=== PATIENT | male | born 1965 | race Caucasian/White ===

== ENCOUNTER 2017-12-18 08:38 | Observation (INO) ==
[2017-12-18] MEDS ORDERED: Naloxone 0.4 MG/ML INJ IVP PRN (11:13)
--- NOTE | 2017-12-18 11:13 | Internal Med History&Physical ---
Date of Encounter: 12/18/17 Time of Encounter: 11:13 Internal Medicine - H&P: HPI Admitted From: Home Plans for Post Hospital Care: Home History of present illness: Mr. George is a 52 year old male with history of CKd2, kidney stone, COPD but not home oxygen, 2 mild leaking valve with no planned cardiac intervention, diabetes mellitus, hypertension, DVT last year but not on anticoagulation except aspirin got transferred from [facility] with diagnosis of right flank pain, history of present illness, leukocytosis. Patient requested for advanced care and wanted to get transferred to her center for ongoing intermittent right flank pain for several month but 3-4 days ago got worse and have progressively worse. Patient denies any associated nausea, vomiting, fever, chills, urinary or bowel complaint. Patient described his pain more like tearing maximum 10 x 10 and at present 6 x 10, nonradiating, Pain get worse on lying right side therefore he preferred to lie down On left side get better on taking pain medicine such as Motrin. In [facility] ER initial lab with raised creatinine 2.8 baseline 1.8 and Avapro 19 few days ago, raised white count 27, normal lactic acid, CT abdomen with no acute finding except left nonobstructive nephrolithiasis, chest x-ray negative. Report of CT abdomen revealed but no imaging CD was sent to therefore requested. Patient had history of abdominal surgery hernia repair, appendectomy questionable gallbladder surgery. Patient denies fever, chills, nausea, vomiting, chest pain, shortness of breath , headache, dizziness, urinary or bowel complaint. Past Med Surg Social Fam HX - Past Medical History Medical history: asthma, CHF, COPD, DVT, kidney stones - Social History Smoking Status: Former smoker Internal Medicine - H&P: Meds 3 Allergy/AdvReac Type Severity Reaction Status Date / Time bee venom protein (honey bee) Allergy Severe Swelling Verified 12/18/17 11:24 of Lip/Tongue/Throat gabapentin Allergy Intermediate Blurry Verified 12/18/17 11:22 Vision metformin AdvReac Gastrointestinal Verified 12/18/17 11:23 Upset All Systems PM: A 10-system review of systems was performed and is negative for pertinent findings except as documented above in the HPI. - Constitutional Exam: General appearance: No acute distress, A&O X 3, obese Head exam: Atraumatic Eye exam: EOMI, PERRLA ENT exam: Moist oral mucosa Neck nontender, supple Respiratory exam: Clear to auscultation bilaterally Cardiovascular exam: Regular rate and rhythm, no systolic murmur Abdominal exam: Soft, tender right upper abdomen and right flank, right CVA tenderness, nondistended, positive bowel sounds, obese Extremities exam: No calf tenderness, no pedal edema Present: Skin-no rash, warm, dry, intact Neurological exam: Alert, awake, oriented 3, CN II-XII intact, no focal deficits. No facial droop. Normal speech. Normal gait. Internal Med - H&P Results - Labs CBC & Chem 7: 12/18/17 11:24 - Assessment and plan (1) Right flank pain Current Visit: Yes Status: Acute Assessment and plan: Acute on chronic intermittent. Right costovertebral tenderness. Patient does not appear in sepsis and no associated systemic sign and symptom. CT abdomen done in was a ER with no acute finding but I would like to have our radiologist reviewed the CD of the CT scan therefore requested. Symptomatic treatment nothing by mouth, IV fluid, pain medicine. Amylase, lipase also ordered to rule out underlying pancreatic inflammation. Ultrasound right upper abdomen ordered to rule out possible obstructive biliary duct as alkaline phosphatase elevated. (2) CHADWICK (acute kidney injury) Current Visit: Yes Status: Acute Assessment and plan: Acute on chronic. Gentle hydration, avoid nephrotoxic drug. Monitor BMP. Consulted still operator gin for further evaluation. (3) Leukocytosis Current Visit: Yes Status: Acute Assessment and plan: No source of infection identified but elevated white count. No fever or chills urinary complaint or pulmonary complaints, chest x-ray done in both the ER with no acute finding. Patient has right flank pain therefore ultrasound right upper quadrant ordered to rule out inflammatory hepatobiliary system. start Invanz. Lactic acid normal. Qualifiers: Leukocytosis type: unspecified Qualified Code(s): D72.829 - Elevated white blood cell count, unspecified (4) Diabetes mellitus Current Visit: Yes Status: Acute Assessment and plan: Hold metformin. Accu-Chek, low sliding scale insulin started. Qualifiers: Diabetes mellitus type: type 2 Diabetes mellitus halfway insulin use: without halfway use Diabetes mellitus complication status: without complication Qualified Code(s): E11.9 - Type 2 diabetes mellitus without complications (5) Hypertension Current Visit: Yes Status: Acute Assessment and plan: Continue monitor. Continue home medicine. Qualifiers: Hypertension type: essential hypertension Qualified Code(s): I10 - Essential (primary) hypertension (6) DVT prophylaxis Current Visit: Yes Status: Acute Assessment and plan: Patient is ambulating. - Time Spent With Patient Total time spent is greater than 50% in coordination of care (as documented) at patient's floor/unit and/or counseling patient: 25 - 35 minutes
[2017-12-18 11:40] LABS: Basophils # 0.1 K/mcL (0.0-0.2); Basophils % 0.5 %; Eosinophils # 0.2 K/mcL (0.0-0.6); Eosinophils % 0.8 %; Hematocrit 35.7 % (37.5-50.1); Hemoglobin 12.2 g/dL (12.9-16.9); Immature Granulocytes % 0.6 % (0-4); Lymphocytes # 6.4 K/mcL (0.6-4.6); Mean Corpuscular HGB Conc 34.2 g/dL (31.6-35.5); Mean Corpuscular Hemoglobin 29.5 pg (28.0-33.3); Mean Corpuscular Volume 86.4 fL (83.0-100.0); Mean Platelet Volume 10.4 fL (9.4-12.4); Monocytes # 1.7 K/mcL (0.0-1.3); Monocytes % 7.3 %; Neutrophils # 14.4 K/mcL (1.6-8.9); Platelet Count 399 K/mcL (140-400); Red Blood Count 4.13 M/mcL (4.19-5.50); Red Cell Distribution Width 16.4 % (11.5-14.5); Segmented Neutrophils % 62.8 %
[2017-12-18] MEDS ORDERED: D5% in Water 1,000 ML IVC PRN (11:47)
[2017-12-18] MEDS ORDERED: *HR* Dextrose 50 % in Water (Syg) 50 ML SYRINGE IVP PRN (11:47)
[2017-12-18] MEDS ORDERED: Dextrose Gel 15 GM/37.5 ML TUBE PO PRN ×2 (11:47)
[2017-12-18] MEDS ORDERED: *HR* FentaNYL (PF) 100 MCG/2 ML VIAL IVP PRN (11:52)
[2017-12-18 11:58] LABS: Albumin 3.9 g/dL (3.5-5.7); Albumin/Globulin Ratio 1.2 (1.1-2.2); Bilirubin,Total 0.8 mg/dL (0.3-1.0); Calcium 9.6 mg/dL (8.6-10.3); Globulin 3.3 g/dL (2.4-3.5); Potassium 4.2 mEq/L (3.5-5.1); Total Protein 7.2 g/dL (6.4-8.9)
[2017-12-18] MEDS: Insulin LISPRO 300 UNITS/3 ML VIAL SQ SCH ×3 (12:29→21:20)
[2017-12-18] MEDS: Ertapenem 1,000 MG in 0.9 % Sodium Chloride Mini Bag 100 ML IVPB SCH (12:31)
[2017-12-18] MEDS: 0.9 % Sodium Chloride 1,000 ML IVC SCH ×2 (12:31→20:26)
[2017-12-18 12:35] LABS: Estimated Average Glucose 226 mg/dl; Hemoglobin A1C 9.5 %
[2017-12-18] MEDS: *HR* OxyCODONE Immed Rel 5 MG TABLET PO PRN ×2 (12:56→19:45)
[2017-12-18 13:12] LABS: Bilirubin,Urine Negative (Negative); Blood,Urine Negative (Negative); Clarity,Urine Clear (Clear); Color,Urine Yellow (Yellow); Glucose,Urine (UA) Normal (Normal); Ketones,Urine Negative (Negative); Leukocyte Esterase,Urine Negative (Negative); Nitrite,Urine Negative (Negative); Protein,Urine Negative (Neg-Trace); Specific Gravity,Urine 1.015 (1.010-1.025); Urobilinogen,Urine Normal (Normal)
[2017-12-19] MEDS: *HR* OxyCODONE Immed Rel 5 MG TABLET PO PRN ×3 (01:56→23:00)
[2017-12-19] MEDS: 0.9 % Sodium Chloride 1,000 ML IVC SCH ×2 (05:46→20:52)
[2017-12-19] MEDS: Insulin LISPRO 300 UNITS/3 ML VIAL SQ SCH ×4 (08:40→20:42)
[2017-12-19] MEDS ORDERED: cefTRIAXone 1,000 MG in Water for inj. (sterile) 20 ML 10 ML IVP SCH (09:00)
--- NOTE | 2017-12-19 09:20 | Nephrology Consult Note ---
Date of Encounter: 12/19/17 Time of Encounter: 09:18 Assessment and Plan (1) CHADWICK (acute kidney injury) Current Visit: Yes Status: Acute Patient has a clinical picture appears to be acute kidney injury superimposed on chronic kidney disease. However not all information is available. Cranial medical record baseline creatinine is 1.8 and patient had a creatinine of 2.8 yesterday. Today's back down to 2.0 to I suspect he does have underlying stage III chronic kidney disease possibly related to diabetic nephropathy and/or hypertensive nephrosclerosis. A full evaluation will be done while the patient is here in the hospital. He does not have any signs nor symptoms of acute pyelonephritis nor urinary tract infection. He has no constitutional symptoms such as fevers chills or sweats. Urinalysis is completely benign. I suspect his right flank pain is musculoskeletal in nature (2) Chronic kidney disease, stage III (moderate) Current Visit: Yes Status: Acute (3) Benign hypertension with chronic kidney disease, stage III Current Visit: Yes Status: Acute (4) Type 2 diabetes mellitus with diabetic chronic kidney disease Current Visit: Yes Status: Acute Qualifiers: Diabetes mellitus fpc insulin use: with fpc use Chronic kidney disease stage: stage 3 (moderate) Qualified Code(s): E11.22 - Type 2 diabetes mellitus with diabetic chronic kidney disease; N18.3 - Chronic kidney disease, stage 3 (moderate); N18.3 - Chronic kidney disease, stage 3 (moderate); Z79.4 - residential (current) use of insulin; Z79.4 - residential (current) use of insulin; Z79.4 - residential (current) use of insulin; Z79.4 - residential (current) use of insulin (5) Right flank pain Current Visit: Yes Status: Acute History of Present Illness - History of Present Illness This is a 52-year-old male who was admitted to the hospital after 2 emergency room visits to [facility] for right flank pain. He was noted to have an elevated serum creatinine. He has been admitted to the hospital for further evaluation and management. Patient reports a history of chronic kidney disease. He said he is seeing a pile driver at [facility] in the past. He is unaware of any details. [facility]ranial [facility] records baseline creatinine is 1.8. In [facility] yesterday was 2.8. Today's 2.02. He did receive some IV fluids overnight. Patient reports a history of diabetes for 2 years and possibly longer. He has been treated for hypertension for 5 years. He has taken Motrin in the past but he says he has not taken any for the past 6 weeks or so. Denies any hematuria, proteinuria, recurrent urinary tract infections, dysuria, abnormal urinary frequency. He does have nocturia 5 times per night. He said he has been told he has renal stones but he is unaware of having any acute renal stone episodes. Reportedly a CAT scan at [facility] does show a nonobstructing renal calculus. That report is not available for review. Patient says that he has been having right flank pain for at least a week or so. The pain radiates anteriorly. He says nothing makes it worse but then upon further questioning he says that moving certain ways and laying certain ways does make it worse. He said he has not had it before then again upon further questioning he says he has had it several times previously and it tends to come and go. He denies taking any prescription pain medications. He says he usually uses Tylenol. He also has used Motrin as noted above. He denies any previous back issues or back injuries or back surgery. The patient does have elevated white blood cell count of 22.9. He denies any fevers chills sweats or cough. Past Med Surg Social Fam HX - Past Medical History Medical history: asthma, CHF, COPD, DVT, kidney stones Psychiatric history: no psych history - Past Surgical History Surgical History: appendectomy, cholecystectomy, orthopedic, other - Social History Smoking Status: Former smoker Smokeless Tobacco Status: Yes Alcohol use: none Drug use: none Medications and Allergies Albuterol Sulfate [Ventolin Hfa] 1 - 2 puff IH Q6H PRN 12/18/17 [History] Alogliptin Benzoate [Alogliptin] 12.5 mg PO DAILY 12/18/17 [History] Aspirin Enteric Coated [Aspirin EC] 81 mg PO DAILY 12/18/17 [History] Atorvastatin Calcium [Lipitor] 80 mg PO HS 12/18/17 [History] Ezetimibe [Ezetimibe] 10 mg PO DAILY 12/18/17 [History] Furosemide [Lasix] 20 mg PO DAILY PRN 12/18/17 [History] HYDROcodone/Acet 5/325 mg [[place] 5-325 mg] 1 tab PO Q6H PRN 12/18/17 [History] Insulin Degludec [Tresiba Flextouch U-100] 40 - 60 unit SQ HS 12/18/17 [History] Lisinopril [Zestril] 20 mg PO DAILY 12/18/17 [History] Metoprolol Tartrate [Metoprolol Tartrate] 100 mg PO DAILY 12/18/17 [History] Ranitidine HCl [Heartburn Relief] 150 mg PO BID 12/18/17 [History] metOLazone [Zaroxolyn] 5 mg PO DAILY 12/18/17 [History] 3 Allergy/AdvReac Type Severity Reaction Status Date / Time bee venom protein (honey bee) Allergy Severe Swelling Verified 12/18/17 11:24 of Lip/Tongue/Throat gabapentin Allergy Intermediate Blurry Verified 12/18/17 11:22 Vision metformin AdvReac Gastrointestinal Verified 12/18/17 11:23 Upset Review of Systems Constitutional: no excessive sweating, no weight loss Eyes: bilateral: blurred vision (patient denies), diplopia (patient denies) Nose, mouth and throat: no dizziness, no headache(s) Cardiovascular: dyspnea on exertion, no chest pain, no palpitations Respiratory: dyspnea on exertion, no cough, no dyspnea Gastrointestinal: no abdominal pain, no change in bowel habits Genitourinary Male: flank pain Musculoskeletal: as per HPI, back pain Musculoskeletal: bilateral: knee pain Integumentary: no hirsutism, no striae Neurological: as per HPI Psychiatric: no depression, no difficulty concentrating Endocrine: as per HPI Exam - Vital Signs Vital signs: Initial Vital Signs Temp Pulse Resp BP Pulse Ox 97.7 F 58 17 108/70 95 12/18/17 11:16 12/18/17 11:16 12/18/17 11:16 12/18/17 11:16 12/18/17 11:16 Vital Signs - Last 8 Hours Temp Pulse Resp BP Pulse Ox 12/19/17 08:25 98.0 F 62 16 125/76 96 12/19/17 03:04 98.0 F 61 16 97/53 93 Intake and Output 12/18/17 12/19/17 12/19/17 23:59 07:59 15:59 Intake Total 1000 / 1000 Output Total 1100 / 1100 400 / 400 Balance -1100 / -1100 1000 / 1000 -400 / -400 Intake: IV Fluids 1000 / 1000 0.9 % Sodium Chloride 1,000 ML 1000 / 1000 @ 100 mls/hr IVC .Q10H QUINN Rx#: [id number] Output: Urine 1100 / 1100 400 / 400 Other: Weight 132.5 kg Blood Glucose* 184 120 Patient Weight 12/19/17 23:59 Weight 132.5 kg - General Appearance Exam: Patient is alert and oriented. He is in no acute distress. Blood pressure 125/ 76. Lowest recorded blood pressures 93/56. Lungs clear to auscultation. Heart regular rate and rhythm without any murmurs or S4 gallops clicks or rubs. Abdomen is protuberant. Bowel sounds are present. No masses julita megaly tenderness guarding or rigidity. There is no laryngeal be swelling. There is some right paraspinal tenderness. This is exacerbated when the patient moves from a semirecumbent position to a sitting position. Results - Lab Results 12/18/17 11:24 12/18/17 11:24 Most recent lab results Calcium 9.6 mg/dL (8.6-10.3) 12/18/17 11:24 Consult Discharge Plan - Plan Referrals: Porfirio Davis MD [Primary Care Provider] -
[2017-12-19] MEDS ORDERED: *HR* OxyCODONE Immed Rel 5 MG TABLET PO SCH (12:00)
[2017-12-19] MEDS: Ertapenem 1,000 MG in 0.9 % Sodium Chloride Mini Bag 100 ML IVPB SCH (12:06)
--- NOTE | 2017-12-19 12:33 | Internal Med Progress Note ---
Date of Encounter: 12/19/17 Time of Encounter: 12:33 - Assessment and plan (1) Right flank pain Current Visit: Yes Status: Acute Assessment and plan: presented with severe right flank pain. Outside hospital ABD CT showed 1.1 cm non-obstructing, otherwise non-acute, no ductal dilation. Lipase, amylase normal at outside hospital. UA unremarkable. Afebrile, no tachycardia. Do not suspect pyelonephritis Etiology unknown at this time however suspect musculoskeletal as pain is reproducible and worse with palpation. Liver ultrasound showed possible hepatitis which could be contributing factor although less likely. Patient reported pain as a ripping/tearing sensation and he is a former smoker with hypertension; unable to do CTA to assess for dissection due to CHADWICK. Discussed with radiology and will order MRA of abdomen/ pelvis to evaluate vasculature. Hepatitis panel pending (2) CHADWICK (acute kidney injury) Current Visit: Yes Status: Acute Assessment and plan: Cr 2.8; baseline appears to be around 1.8. Renal function appears to be improving with IV fluids. Holding home SARA, Lasix. Avoid nephrotoxic agents as possible. Nephrology following. Monitor repeat renal function. Renal ultrasound pending. (3) Leukocytosis Current Visit: Yes Status: Acute Assessment and plan: WBC 27K at outside hospital, lactic acid 1.2. Afebrile, no tachycardia. BP soft/borderline. No obvious infectious source. UA not indicative of UTI, ABD CT non-acute. CXR, blood cx's pending. Hold on ATB at this time Qualifiers: Leukocytosis type: unspecified Qualified Code(s): D72.829 - Elevated white blood cell count, unspecified (4) Diabetes mellitus Current Visit: Yes Status: Acute Assessment and plan: per hx. leading home oral hypoglycemics. SSI. Monitor blood sugar and titrate PRN Qualifiers: Diabetes mellitus type: type 2 Diabetes mellitus [facility] insulin use: without [facility] use Diabetes mellitus complication status: without complication Qualified Code(s): E11.9 - Type 2 diabetes mellitus without complications (5) Hypertension Current Visit: Yes Status: Acute Assessment and plan: per hx. BP soft/borderline. Holding home SARA with AK I. Continue home BB with hold parameters. Qualifiers: Hypertension type: essential hypertension Qualified Code(s): I10 - Essential (primary) hypertension (6) DVT prophylaxis Current Visit: Yes Status: Acute Assessment and plan: ambulation - Time Spent With Patient Total time spent is greater than 50% in coordination of care (as documented) at patient's floor/unit and/or counseling patient: - Subjective Interval history: Seen and examined at bedside. Patient is new to me, information obtained from chart review and patient report. Still complaining of right flank/back pain although improved from arrival. Describes pain as a tearing/repeat sensation. Currently rates 3/10. Pain medicine helps relieve pain and movement/activity and a for positioning worsening pain. No CP, no SOB - Constitutional Vitals: Temp Pulse Resp BP Pulse Ox 98.1 F 62 16 106/56 94 12/19/17 11:09 12/19/17 11:09 12/19/17 11:09 12/19/17 11:09 12/19/17 11:09 General appearance: Present: A&O X 3, morbidly obese - Head Head exam: Present: atraumatic, normocephalic - Eye Eye exam: Present: PERRL, conjuntiva pink, sclera anicteric Pupils: Present: PERRL - Neck Neck exam general surgery: Present: supple, trachea midline. Absent: lymphadenopathy - Respiratory Respiratory exam: Present: CTAB. Absent: accessory muscle use, rales, rhonchi, wheezes - Cardiovascular Cardiovascular exam: Present: RRR, +S1, +S2. Absent: diastolic murmur, gallop, rubs, systolic murmur - GI/Abdominal GI/Abdominal exam: Present: normal bowel sounds, soft, no peritoneal signs. Absent: distended, tenderness Additional comments: right flank pain; worse with palpation - Extremities Exam Extremities exam: Present: warm, radial pulses palpable and symmetrical. Absent : calf tenderness, cyanotic, pedal edema - Neurological Exam Neurological exam: Present: CN II-XII intact, oriented X3, no focal deficits. Absent: pronater drift, facial droop, speech deficit - Skin Skin exam: Present: dry, intact Internal Medicine: Result - Labs CBC & Chem 7: 12/19/17 12:52 12/19/17 12:52 Labs: Urine 12/18/17 Range/Units 13:00 Urine Color Yellow (Yellow) Urine Clarity Clear (Clear) Urine pH 6.0 (5.0-8.0) pH Units Ur Specific [place] 1.015 (1.010-1.025) Urine Protein Negative (Neg-Trace) mg/dL Urine Glucose (UA) Normal (Normal) mg/dL - Impressions Impressions Liver Ultrasound 12/19/17 07:30 IMPRESSION: 1. Coarsened hepatic echotexture which is nonspecific but is suggestive of hepatocellular disease possibly hepatitis. 2. Possible punctate nonobstructing calculus anterior right kidney. D/ / Olivia Grimes MD / Olivia Grimes MD Interpreting Provider: Olivia Grimes MD Consult Discharge Plan - Plan Referrals: Porfirio Davis MD [Primary Care Provider] -
[2017-12-19 13:17] LABS: Hematocrit 37.2 % (37.5-50.1); Hemoglobin 12.2 g/dL (12.9-16.9); Mean Corpuscular HGB Conc 32.8 g/dL (31.6-35.5); Mean Corpuscular Hemoglobin 28.9 pg (28.0-33.3); Mean Corpuscular Volume 88.2 fL (83.0-100.0); Mean Platelet Volume 10.3 fL (9.4-12.4); Platelet Count 357 K/mcL (140-400); Red Blood Count 4.22 M/mcL (4.19-5.50); Red Cell Distribution Width 16.7 % (11.5-14.5)
[2017-12-19 13:25] LABS: BUN/Creatinine Ratio 30 (6-26); Blood Urea Nitrogen 34 mg/dL (6-20); Carbon Dioxide 30 mEq/L (23-29); Chloride 104 mEq/L (98-107); Glucose 120 mg/dL (70-105); Osmolality,Calculated 295 (280-300); Potassium 4.3 mEq/L (3.5-5.1); Sodium 138 mEq/L (136-145); eGFR For African Americans > 60 (> 60); eGFR For Non-African Americans > 60 (> 60)
[2017-12-19] MEDS: Famotidine 20 MG TABLET PO SCH (20:42)
[2017-12-19 21:34] LABS: Creatinine,Urine 51 mg/dL; Microalbumin,Urine < 7 mg/L
[2017-12-20 06:06] LABS: Hematocrit 36.8 % (37.5-50.1); Hemoglobin 12.2 g/dL (12.9-16.9); Mean Corpuscular HGB Conc 33.2 g/dL (31.6-35.5); Mean Corpuscular Hemoglobin 29.3 pg (28.0-33.3); Mean Corpuscular Volume 88.2 fL (83.0-100.0); Mean Platelet Volume 10.8 fL (9.4-12.4); Platelet Count 357 K/mcL (140-400); Red Blood Count 4.17 M/mcL (4.19-5.50); Red Cell Distribution Width 16.6 % (11.5-14.5)
[2017-12-20 06:26] LABS: Alanine Aminotransferase 21 Units/L (7-52); Albumin 3.7 g/dL (3.5-5.7); Albumin/Globulin Ratio 1.2 (1.1-2.2); Alkaline Phosphatase 81 Units/L (34-104); Aspartate Amino Transferase 18 Units/L (13-39); BUN/Creatinine Ratio 25 (6-26); Bilirubin,Total 0.8 mg/dL (0.3-1.0); Blood Urea Nitrogen 26 mg/dL (6-20); Calcium 9.1 mg/dL (8.6-10.3); Carbon Dioxide 27 mEq/L (23-29); Chloride 104 mEq/L (98-107); Globulin 3.2 g/dL (2.4-3.5); Glucose 134 mg/dL (70-105); Osmolality,Calculated 293 (280-300); Potassium 4.1 mEq/L (3.5-5.1); Sodium 138 mEq/L (136-145); Total Protein 6.9 g/dL (6.4-8.9); eGFR For African Americans > 60 (> 60); eGFR For Non-African Americans > 60 (> 60)
[2017-12-20] MEDS: 0.9 % Sodium Chloride 1,000 ML IVC SCH ×2 (06:43→19:05)
[2017-12-20] MEDS: *HR* OxyCODONE Immed Rel 5 MG TABLET PO PRN ×2 (06:46→20:03)
[2017-12-20 07:08] LABS: Hepatitis B Surface Antigen Nonreactive (Nonreactive)
--- NOTE | 2017-12-20 07:36 | Urology - Consult Note ---
Date of Encounter: 12/20/17 Time of Encounter: 07:34 - Assessment and Plan (1) Nephrolithiasis Current Visit: Yes Status: Acute Assessment and plan: 52-year-old man with a left lower pole renal stone. This is unlikely the source of his pain. We did briefly discussed treatment options such as shockwave lithotripsy or ureteroscopic stone extraction. These can be performed as an outpatient. He does not require ureteral stent placement at this time. I will arrange for follow-up as an outpatient. (2) Right flank pain Current Visit: Yes Status: Acute Assessment and plan: 52-year-old man with right flank pain and a leukocytosis. His CT is not concerning for pyelonephritis. Urinalysis from 12/18/2017 is not concerning for infection. His flank pain may be more musculoskeletal. I would defer to primary team for further workup of his leukocytosis. (3) Leukocytosis Current Visit: Yes Status: Acute Qualifiers: Leukocytosis type: unspecified Qualified Code(s): D72.829 - Elevated white blood cell count, unspecified Urology CN:HPI Consult date: 12/20/17 Reason for consult Urology: Other (Left renal stone) History of present illness: 52-year-old man presents with a three-day history of right flank pain. He reports that movement exacerbated the pain. The pain eventually got worse and felt very severe. He describes it as being sharp and stabbing. He went to his local emergency department. A CT scan was obtained which showed a left sided 1 cm lower pole renal stone. He was transferred to [facility] for further care. He denies any urinary issues. He says he has a good flow and empties well. He denies any left flank pain. He says the right-sided flank pain has improved while he was in the hospital. He had CT imaging of the chest abdomen and pelvis. There was no evidence of dissection. He is feeling better today. Past Med Surg Social Fam HX - Past Medical History Medical history: asthma, CHF, COPD, DVT, kidney stones Psychiatric history: no psych history - Past Surgical History Surgical History: appendectomy, cholecystectomy, orthopedic, other - Social History Smoking Status: Former smoker Smokeless Tobacco Status: Yes Alcohol use: none Drug use: none Medications and Allergies Albuterol Sulfate [Ventolin Hfa] 1 - 2 puff IH Q6H PRN 12/18/17 [History] Alogliptin Benzoate [Alogliptin] 12.5 mg PO DAILY 12/18/17 [History] Aspirin Enteric Coated [Aspirin EC] 81 mg PO DAILY 12/18/17 [History] Atorvastatin Calcium [Lipitor] 80 mg PO HS 12/18/17 [History] Ezetimibe [Ezetimibe] 10 mg PO DAILY 12/18/17 [History] Furosemide [Lasix] 20 mg PO DAILY PRN 12/18/17 [History] HYDROcodone/Acet 5/325 mg [Hayward 5-325 mg] 1 tab PO Q6H PRN 12/18/17 [History] Insulin Degludec [Tresiba Flextouch U-100] 40 - 60 unit SQ HS 12/18/17 [History] Lisinopril [Zestril] 20 mg PO DAILY 12/18/17 [History] Metoprolol Tartrate [Metoprolol Tartrate] 100 mg PO DAILY 12/18/17 [History] Ranitidine HCl [Heartburn Relief] 150 mg PO BID 12/18/17 [History] metOLazone [Zaroxolyn] 5 mg PO DAILY 12/18/17 [History] 3 Allergy/AdvReac Type Severity Reaction Status Date / Time bee venom protein (honey bee) Allergy Severe Swelling Verified 12/18/17 11:24 of Lip/Tongue/Throat gabapentin Allergy Intermediate Blurry Verified 12/18/17 11:22 Vision metformin AdvReac Gastrointestinal Verified 12/18/17 11:23 Upset Review of Systems - Constitutional no chills, no fever(s) - EENT Nose, mouth and throat: no dizziness - Cardiovascular no chest pain - Respiratory no dyspnea - Gastrointestinal no nausea, no vomiting - Genitourinary flank pain, no hematuria - Musculoskeletal no back pain - Integumentary no erythema, no rash - Neurological no weakness - Psychiatric no suicidal ideation - Hematologic/Lymphatic no easy bleeding - Allergic/Immunologic no wheezing Exam Initial Vital Signs Temp Pulse Resp BP Pulse Ox 97.7 F 58 17 108/70 95 12/18/17 11:16 12/18/17 11:16 12/18/17 11:16 12/18/17 11:16 12/18/17 11:16 - General physical appearance Present: well developed, well nourished, no distress - Eyes Absent: icteric - ENT Present: normal nares - Neck Present: trachea midline - Respiratory Present: normal respiratory effort - Cardiovascular Cardiovascular exam IM: RRR - Abdomen Abdomen: Present: soft - Integumentary Present: no rash - Neurologic Present: normal coordination - Musculoskeletal Present: other (Normal tone and strength.) Urology Results - Labs 12/20/17 05:01 12/20/17 05:01 Abnormal lab results WBC 16.6 K/mcL (4.3-11.1) H 12/20/17 05:01 RBC 4.17 M/mcL (4.19-5.50) L 12/20/17 05:01 Hgb 12.2 g/dL (12.9-16.9) L 12/20/17 05:01 Hct 36.8 % (37.5-50.1) L 12/20/17 05:01 RDW 16.6 % (11.5-14.5) H 12/20/17 05:01 Neutrophils # 14.4 K/mcL (1.6-8.9) H 12/18/17 11:24 Lymphocytes # 6.4 K/mcL (0.6-4.6) H 12/18/17 11:24 Monocytes # 1.7 K/mcL (0.0-1.3) H 12/18/17 11:24 BUN 26 mg/dL (6-20) H 12/20/17 05:01 Glucose 134 mg/dL (70-105) H 12/20/17 05:01 POC Glucose 163 mg/dL (70-99) H 12/19/17 20:25 Hemoglobin A1c 9.5 % (-5.6) H 12/18/17 11:24 Phosphorus 2.5 mg/dL (2.7-4.5) L 12/19/17 09:50 Diabetes panel 12/19/17 12/20/17 Range/Units 12:52 05:01 Sodium 138 138 (136-145) mEq/L Potassium 4.3 4.1 (3.5-5.1) mEq/L Chloride 104 104 (98-107) mEq/L Carbon Dioxide 30 H 27 (23-29) mEq/L BUN 34 H 26 H (6-20) mg/dL Creatinine 1.15 1.02 (0.70-1.30) mg/dL Glucose 120 H 134 H (70-105) mg/dL Calcium 9.0 9.1 (8.6-10.3) mg/dL AST 18 (13-39) Units/L ALT 21 (7-52) Units/L Alkaline Phosphatase 81 (34-104) Units/L Albumin 3.7 (3.5-5.7) g/dL Calcium panel 12/19/17 12/19/17 12/20/17 Range/Units 09:50 12:52 05:01 Calcium 9.0 9.1 (8.6-10.3) mg/dL Phosphorus 2.5 L (2.7-4.5) mg/dL Albumin 3.7 (3.5-5.7) g/dL Pituitary panel 12/19/17 12/20/17 Range/Units 12:52 05:01 Sodium 138 138 (136-145) mEq/L Potassium 4.3 4.1 (3.5-5.1) mEq/L Chloride 104 104 (98-107) mEq/L Carbon Dioxide 30 H 27 (23-29) mEq/L BUN 34 H 26 H (6-20) mg/dL Creatinine 1.15 1.02 (0.70-1.30) mg/dL Glucose 120 H 134 H (70-105) mg/dL Calcium 9.0 9.1 (8.6-10.3) mg/dL Adrenal panel 12/19/17 12/20/17 Range/Units 12:52 05:01 Sodium 138 138 (136-145) mEq/L Potassium 4.3 4.1 (3.5-5.1) mEq/L Chloride 104 104 (98-107) mEq/L Carbon Dioxide 30 H 27 (23-29) mEq/L BUN 34 H 26 H (6-20) mg/dL Creatinine 1.15 1.02 (0.70-1.30) mg/dL Glucose 120 H 134 H (70-105) mg/dL Calcium 9.0 9.1 (8.6-10.3) mg/dL Total Bilirubin 0.8 (0.3-1.0) mg/dL AST 18 (13-39) Units/L ALT 21 (7-52) Units/L Alkaline Phosphatase 81 (34-104) Units/L Albumin 3.7 (3.5-5.7) g/dL All other labs normal. - Imaging CT scan - abdomen: report reviewed, image reviewed CT scan - pelvis: report reviewed, image reviewed Consult Discharge Plan - Plan Referrals: Porfirio Davis MD [Primary Care Provider] -
[2017-12-20] MEDS: Aspirin Enteric Coated 81 MG Tablet PO SCH (07:56)
[2017-12-20] MEDS: Famotidine 20 MG TABLET PO SCH ×2 (07:56→20:03)
[2017-12-20] MEDS: Insulin LISPRO 300 UNITS/3 ML VIAL SQ SCH ×4 (10:15→21:16)
--- NOTE | 2017-12-20 12:09 | Internal Med Progress Note ---
Date of Encounter: 12/20/17 Time of Encounter: 09:25 - Assessment and plan (1) Right flank pain Current Visit: Yes Status: Acute Assessment and plan: Patient reports resolution of flank pain. Patient reports his he is able to pending for to touch his toes, which he could not do on arrival. Patient does have left lower pole renal stone, urology believes that this is not the source of his pain and feels that the pain might be more musculoskeletal in nature. Due to his resolution of pain and inability to bend at the waist or rotate side to side at the waist, I agree with this assessment. CTA abdomen and pelvis essentially unremarkable other than single 1.2 cm lymph node within the right external iliac chain, and left-sided nephrolithiasis without obstruction or hydronephrosis. KUB is also without evidence of obstructive uropathy. Urine is negative for any signs of infection. Pt has no CVA tenderness. Continue pain control and monitor for changes. (2) CHADWICK (acute kidney injury) Current Visit: Yes Status: Acute Assessment and plan: Acute kidney injury on chronic kidney disease stage III. Renal function has report returned to normal. Creatinine is 1.02 GFR is greater than 60. Retroperitoneal ultrasound shows calcifications left kidney, bladder is suboptimally distended, otherwise unremarkable examination. Continue gentle IV fluid hydration. continue to hold home dose of Dread inhibitor and Lasix. Nephrology is following. (3) Leukocytosis Current Visit: Yes Status: Acute Assessment and plan: White count 16.6 today, slowly improving. Patient remains afebrile, tachycardia , normotensive. Lactic acid was within normal limits at outside hospital. Urine negative for any signs of infection. Abdomen CT unremarkable, chest x- ray negative, retroperitoneal ultrasound negative, KUB without evidence of obstructive uropathy. Patient has no obvious sign of infection. Continue to monitor, hold antibiotic. WBC 27K at outside hospital, lactic acid 1.2. Afebrile, no tachycardia. BP soft/borderline. No obvious infectious source. UA not indicative of UTI, ABD CT non-acute. CXR, blood cx's pending. Hold on ATB at this time Qualifiers: Leukocytosis type: unspecified Qualified Code(s): D72.829 - Elevated white blood cell count, unspecified (4) Diabetes mellitus Current Visit: Yes Status: Acute Assessment and plan: Diabetes uncontrolled. Hemoglobin A1c is 9.5%. Continue sliding scale insulin , Accu-Cheks before meals and at bedtime, diabetic diet. Qualifiers: Diabetes mellitus type: type 2 Diabetes mellitus care home insulin use: without technician terminal and repeater use Diabetes mellitus complication status: without complication Qualified Code(s): E11.9 - Type 2 diabetes mellitus without complications (5) Hypertension Current Visit: Yes Status: Acute Assessment and plan: Chronic. Well controlled. DREAD inhibitor has been held due to CHADWICK. Continue to monitor blood pressure vital signs. Qualifiers: Hypertension type: essential hypertension Qualified Code(s): I10 - Essential (primary) hypertension (6) DVT prophylaxis Current Visit: Yes Status: Acute Assessment and plan: continue to encourage ambulation. - Time Spent With Patient Total time spent is greater than 50% in coordination of care (as documented) at patient's floor/unit and/or counseling patient: less than 15 minutes - Subjective Interval history: Patient was seen and assessed at bedside at 9:25 AM. He states he is feeling significantly better, flank pain has resolved. He is agreeable to staying for continued evaluation of leukocytosis. Patient has no CVA tenderness reports that he is now able to move and bend freely, which he could not do previously. He denies headache, nausea, vomiting, diarrhea, abdominal pain, neck pain. He denies dysuria, fever, chills, cough, or URI symptoms. - Constitutional Vitals: Temp Pulse Resp BP Pulse Ox 98.3 F 57 16 118/58 95 12/20/17 11:32 12/20/17 11:32 12/20/17 11:32 12/20/17 11:32 12/20/17 11:32 General appearance: Present: cooperative, A&O X 3, morbidly obese, pleasant, no acute distress, answers questions appropriately - Head Head exam: Present: atraumatic, normal inspection, normocephalic - Eye Eye exam: Present: normal appearance, conjuntiva pink, sclera anicteric - Neck Neck exam general surgery: Present: normal inspection, supple, trachea midline. Absent: lymphadenopathy, tenderness - Respiratory Respiratory exam: Present: CTAB. Absent: accessory muscle use, chest wall tenderness, decreased breath sounds, rales, respiratory distress, rhonchi, wheezes - Cardiovascular Cardiovascular exam: Present: RRR, +S1, +S2. Absent: diastolic murmur, gallop, rubs, systolic murmur - GI/Abdominal GI/Abdominal exam: Present: normal bowel sounds, soft. Absent: distended, hepatomegaly, tenderness - Extremities Exam Extremities exam: Present: normal capillary refill, normal inspection, warm, radial pulses palpable and symmetrical. Absent: calf tenderness, cyanotic, pedal edema, tenderness - Back Exam Back exam: Present: full ROM, normal inspection. Absent: CVA tenderness (L), CVA tenderness (R) - Neurological Exam Neurological exam: Present: alert, oriented X3, no focal deficits. Absent: facial droop, speech deficit - Skin Skin exam: Present: dry, intact, normal color, warm. Absent: rash Internal Medicine: Result - Labs CBC & Chem 7: 12/20/17 05:01 12/20/17 05:01 Labs: Short CBC 12/19/17 12/20/17 Range/Units 12:52 05:01 WBC 15.3 H 16.6 H (4.3-11.1) K/mcL Hgb 12.2 L 12.2 L (12.9-16.9) g/dL Hct 37.2 L 36.8 L (37.5-50.1) % Plt Count 357 357 (140-400) K/mcL BMP 12/19/17 12/20/17 12:52 05:01 Sodium 138 138 Potassium 4.3 4.1 Chloride 104 104 Carbon Dioxide 30 H 27 BUN 34 H 26 H Creatinine 1.15 1.02 Glucose 120 H 134 H Calcium 9.0 9.1 Liver Function 12/20/17 Range/Units 05:01 Total Bilirubin 0.8 (0.3-1.0) mg/dL AST 18 (13-39) Units/L ALT 21 (7-52) Units/L Alkaline Phosphatase 81 (34-104) Units/L Albumin 3.7 (3.5-5.7) g/dL - Impressions Impressions Chest X-Ray 12/19/17 14:01 IMPRESSION: No acute cardiopulmonary process. D/ / 12/19/2017 16:22:09 Thai Masters MD / bcarter Interpreting Provider: Thai Masters MD Retroperitoneum Ultrasound 12/19/17 15:30 IMPRESSION: Calcifications in the left kidney likely parenchymal nephroliths. Bladder is suboptimally distended. Examination is otherwise unremarkable. D/ / Gwendolyn Nicole MD / Gwendolyn Nicole MD Interpreting Provider: Gwendolyn Nicole MD Abdomen/Pelvis CTA 12/19/17 17:00 IMPRESSION: No evidence for aortic and is well dilatation or dissection. No intramural hematoma. No central pulmonary embolism. Status post cholecystectomy. Single enlarged lymph node within the right external iliac chain measuring 1.2 cm in diameter. Left-sided nephrolithiasis without evidence for urinary obstruction or hydronephrosis. D/ / Mathieu Vega MD / Mathieu Vega MD Interpreting Provider: Mathieu Vega MD Chest CTA 12/19/17 17:00 IMPRESSION: No evidence for aortic and is well dilatation or dissection. No intramural hematoma. No central pulmonary embolism. Status post cholecystectomy. Single enlarged lymph node within the right external iliac chain measuring 1.2 cm in diameter. Left-sided nephrolithiasis without evidence for urinary obstruction or hydronephrosis. D/ / Mathieu Vega MD / Mathieu Vega MD Interpreting Provider: Mathieu Vega MD X-Ray 12/19/17 17:26 IMPRESSION: No evidence of obstructive uropathy D/ / Edvin Helton MD / Edvin Helton MD Interpreting Provider: Edvin Helton MD Consult Discharge Plan - Plan Referrals: Porfirio Davis MD [Primary Care Provider] -
[2017-12-21 03:41] LABS: Hepatitis A Antibody IgM Nonreactive (Nonreactive); Hepatitis B Core IgM Nonreactive (Nonreactive); Hepatitis C Virus Antibody Nonreactive (Nonreactive)
[2017-12-21 04:14] LABS: Hematocrit 34.3 % (37.5-50.1); Hemoglobin 11.6 g/dL (12.9-16.9); Mean Corpuscular HGB Conc 33.8 g/dL (31.6-35.5); Mean Corpuscular Hemoglobin 29.1 pg (28.0-33.3); Mean Corpuscular Volume 86.2 fL (83.0-100.0); Mean Platelet Volume 10.4 fL (9.4-12.4); Platelet Count 349 K/mcL (140-400); Red Blood Count 3.98 M/mcL (4.19-5.50); Red Cell Distribution Width 16.5 % (11.5-14.5)
[2017-12-21 04:31] LABS: BUN/Creatinine Ratio 20 (6-26); Blood Urea Nitrogen 18 mg/dL (6-20); Calcium 9.1 mg/dL (8.6-10.3); Carbon Dioxide 29 mEq/L (23-29); Chloride 104 mEq/L (98-107); Glucose 97 mg/dL (70-105); Osmolality,Calculated 288 (280-300); Potassium 4.4 mEq/L (3.5-5.1); Sodium 138 mEq/L (136-145); eGFR For African Americans > 60 (> 60); eGFR For Non-African Americans > 60 (> 60)
[2017-12-21] MEDS: 0.9 % Sodium Chloride 1,000 ML IVC SCH (05:21)
[2017-12-21] MEDS: Insulin LISPRO 300 UNITS/3 ML VIAL SQ SCH ×3 (09:07→16:13)
[2017-12-21] MEDS: Famotidine 20 MG TABLET PO SCH (09:08)
[2017-12-21] MEDS: Aspirin Enteric Coated 81 MG Tablet PO SCH (09:08)
--- NOTE | 2017-12-21 11:02 | Nephrology Progress Note ---
Date of Encounter: 12/21/17 Time of Encounter: 10:30 - Assessment and Plan (1) CHADWICK (acute kidney injury) Current Visit: Yes Status: Acute CHADWICK, unknown etiology. Creat 0.89, documented urine output 1200 cc. Will sign off. Call again if needed. Subjective Interval history: Laying in bed. Denies pain. Thinks is going home. Objective - Vital Signs Vital signs: Vital Signs Temp Pulse Resp BP Pulse Ox 12/21/17 07:01 97.3 F L 61 16 143/86 97 12/21/17 03:55 97.9 F 59 16 134/81 96 12/20/17 22:41 97.6 F 58 16 129/78 96 12/20/17 19:24 97.9 F 60 16 143/84 97 12/20/17 16:21 97.9 F 60 16 125/74 96 12/20/17 11:32 98.3 F 57 16 118/58 95 Intake and Output 12/20/17 12/21/17 12/21/17 23:59 07:59 15:59 Intake Total 1240 / 1240 1000 / 1000 120 / 120 Output Total 600 / 600 400 / 400 Balance 640 / 640 600 / 600 120 / 120 Intake: IV Fluids 1000 / 1000 1000 / 1000 0.9 % Sodium Chloride 1,000 ML 1000 / 1000 1000 / 1000 @ 100 mls/hr IVC .Q10H [facility] Rx#: [id number] Oral 240 / 240 120 / 120 Output: Urine 600 / 600 400 / 400 Other: Meal Dinner Breakfast Percent of Meal Consumed 100% 100% Weight 132.5 kg Blood Glucose* 120 109 Patient Weight 12/21/17 23:59 Weight 132.5 kg - General Appearance General appearance: Present: well-developed, well-nourished, appears started age EENT: Present: mucous membranes moist Neck: Present: no JVD Respiratory: Present: clear Cardiology: Present: no edema, regular rate, regular rhythm Gastrointestinal: Present: normoactive bowel sounds, no tenderness Integumentary: Present: warm and dry Neurologic: Present: alert and oriented x3 - Lab 12/21/17 03:31 12/21/17 03:31 Most recent lab results Calcium 9.1 mg/dL (8.6-10.3) 12/21/17 03:31 Phosphorus 2.5 mg/dL (2.7-4.5) L 12/19/17 09:50 Urine Creatinine 51 mg/dL 12/19/17 19:52 Consult Discharge Plan - Plan Referrals: Porfirio Davis MD [Primary Care Provider] -
--- NOTE | 2017-12-21 12:53 | Discharge Summary ---
- NOTES TO OUTPATIENT PROVIDER Notes to Outpatient Provider: Pt was admitted for right flank pain, CHADWICK, and leukocytosis. All labs and imaging were negative. Pt feels better. Leukocytosis remains, unclear etiology. Pt has an appointment with hematology on 12/27 at 11: 20. Orders not resulted at time of discharge: Pending orders 12/19/17 09:50 Immunoelectrophoresis Routine 12/19/17 12:52 Culture,Blood [BC] Stat Culture,Blood,Additional [BC] Stat 12/19/17 19:52 Immunofixation,Urine (BJP) Routine 12/21/17 11:58 Peripheral Bld Flow-[facility] Stat 12/22/17 04:00 BMP [Basic Metabolic Panel] AM 0400 Complete Blood Count w/o Diff [HEME] AM 0400 12/23/17 04:00 BMP [Basic Metabolic Panel] AM 0400 Complete Blood Count w/o Diff [HEME] AM 0400 12/24/17 04:00 BMP [Basic Metabolic Panel] AM 0400 Complete Blood Count w/o Diff [HEME] AM 0400 Date of Encounter: 12/21/17 Time of Encounter: 12:30 - Discharge Diagnosis (1) Right flank pain Priority: Secondary Status: Acute Assessment and Plan: Resolved. All imaging was negative. There is left-sided nephrolithiasis without evidence of urinary obstruction or Hydronephrosis on abdomen CTA. Retroperitoneal ultrasound was unremarkable. KUB also negative. Liver Ultrasound 12/19/17 07:30 IMPRESSION: 1. Coarsened hepatic echotexture which is nonspecific but is suggestive of hepatocellular disease possibly hepatitis. 2. Possible punctate nonobstructing calculus anterior right kidney. D/ / Olivia Grimes MD / Olivia Grimes MD Interpreting Provider: Olivia Grimes MD Retroperitoneum Ultrasound 12/19/17 15:30 IMPRESSION: Calcifications in the left kidney likely parenchymal nephroliths. Bladder is suboptimally distended. Examination is otherwise unremarkable. D/ / Gwendolyn Nicole MD / Gwendolyn Nicole MD Interpreting Provider: Gwendolyn Nicole MD Abdomen/Pelvis CTA 12/19/17 17:00 IMPRESSION: No evidence for aortic and is well dilatation or dissection. No intramural hematoma. No central pulmonary embolism. Status post cholecystectomy. Single enlarged lymph node within the right external iliac chain measuring 1.2 cm in diameter. Left-sided nephrolithiasis without evidence for urinary obstruction or hydronephrosis. D/ / Mathieu Vega MD / Mathieu Vega MD Interpreting Provider: Mathieu Vega MD X-Ray 12/19/17 17:26 IMPRESSION: No evidence of obstructive uropathy D/ / Edvin Helton MD / Edvin Helton MD Interpreting Provider: Edvin Helton MD (2) CHADWICK (acute kidney injury) Priority: Secondary Status: Acute Assessment and Plan: Resolved Sr Cr 0.89, GFR > 60. (3) Leukocytosis Priority: Secondary Status: Acute Assessment and Plan: White count 17.3 today. Patient remains afebrile, no tachycardia, normotensive. Urine negative for any signs of infection. Abdomen CT unremarkable, chest x- ray negative, retroperitoneal ultrasound negative, KUB without evidence of obstructive uropathy. Pt had increased neutrophils on admission. Peripheral smear has been ordered for hematology consult. He is a non-smoker, has not been on steroids in the recent past. Patient has no obvious sign of infection. No need for antibiotics at this time. Discussed with oncology SHACTOR, pt will have consultation with Dr. Robbins on 12/27 @ 11:20. Pt is aware and was given appointment card. Qualifiers: Leukocytosis type: unspecified Qualified Code(s): D72.829 - Elevated white blood cell count, unspecified (4) Diabetes mellitus Priority: Secondary Status: Chronic Assessment and Plan: Diabetes uncontrolled, A1c is 9.5%. Continue home medications and accucheck regimen. 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 Well controlled. Will restart ACEI on discharge due to concern of renal injury ofrom DM. Qualifiers: Hypertension type: essential hypertension Qualified Code(s): I10 - Essential (primary) hypertension (6) DVT prophylaxis Priority: Secondary Status: Acute Assessment and Plan: Pt ambulatory. Hospital course: Mr. George is a 52 year old male with past medical history of diabetes, hypertension, chronic kidney disease stage III, COPD. Patient presents to the emergency department with complaints of right flank pain for 1 month, worse 3 or 4 days prior to admission. Patient was admitted for acute kidney injury. Flank pain resolved spontaneously, CHADWICK resolved with IV fluid. Leukocytosis remains with unclear etiology. Patient is afebrile, no tachycardia, no hypotension, no signs of sepsis, sirs or infection. All imaging was unremarkable. Chest x-ray negative for pneumonia, liver ultrasound negative, chest CTA negative for PE or pneumonia or AAA. KUB is unremarkable. Retroperitoneal ultrasound shows no hydronephrosis. All other labs and vitals are stable and within normal limits. Discussed patient's case with oncology SHACTOR , she is maintaining appointment to follow up for evaluation of leukocytosis. He will follow-up on December 27 at 11:20 AM. He is aware, states he will be able to attend the appointment. Patient is stable and appropriate for discharge. Discharge discussed with: patient - Time Spent with Patient Total time spent providing and/or coordinating discharge services: Less than 30 minutes - Discharge Medications Home Medications: Albuterol Sulfate [Ventolin Hfa] 1 - 2 puff IH Q6H PRN 12/18/17 [History] Alogliptin Benzoate [Alogliptin] 12.5 mg PO DAILY 12/18/17 [History] Aspirin Enteric Coated [Aspirin EC] 81 mg PO DAILY 12/18/17 [History] Atorvastatin Calcium [Lipitor] 80 mg PO HS 12/18/17 [History] Ezetimibe 10 mg PO DAILY 12/18/17 [History] Furosemide [Lasix] 20 mg PO DAILY PRN 12/18/17 [History] HYDROcodone/Acet 5/325 mg [[place] 5-325 mg] 1 tab PO Q6H PRN 12/18/17 [History] Insulin Degludec [Tresiba Flextouch U-100] 40 - 60 unit SQ HS 12/18/17 [History] Lisinopril [Zestril] 20 mg PO DAILY 12/18/17 [History] Metoprolol Tartrate 100 mg PO DAILY 12/18/17 [History] Ranitidine HCl [Heartburn Relief] 150 mg PO BID 12/18/17 [History] metOLazone [Zaroxolyn] 5 mg PO DAILY 12/18/17 [History] Allergies/Adverse Reactions: 3 Allergy/AdvReac Type Severity Reaction Status Date / Time bee venom protein (honey bee) Allergy Severe Swelling Verified 12/18/17 11:24 of Lip/Tongue/Throat gabapentin Allergy Intermediate Blurry Verified 12/18/17 11:22 Vision metformin AdvReac Gastrointestinal Verified 12/18/17 11:23 Upset Date of admission: 12/18/17 10:06 Primary care physician: Hossein Lee Consults: 12/18/17 11:21 Consult to Nephrology [CONS] Routine Consulting Provider: [facility] Reason for Consult: CHADWICK Call Completed: Yes 12/19/17 17:26 Consult to Urology [CONS] Routine Consulting Provider: Urology Ju Reason for Consult: Right flank pain with nonobstructing stone Call Completed: Yes Discharging clinician: Sherin Diaz Anticipated date of discharge: 12/21/17 - Constitutional Vitals: Temp Pulse Resp BP Pulse Ox 97.5 F L 60 15 117/75 95 12/21/17 11:07 12/21/17 11:07 12/21/17 11:07 12/21/17 11:07 12/21/17 11:07 General appearance: Present: cooperative, A&O X 3, morbidly obese, pleasant, no acute distress, answers questions appropriately - Head Head exam: Present: atraumatic, normal inspection, normocephalic - Eye Eye exam: Present: normal appearance, conjuntiva pink, sclera anicteric - Neck Neck exam general surgery: Present: normal inspection, supple, trachea midline. Absent: lymphadenopathy, tenderness - Respiratory Respiratory exam: Present: CTAB. Absent: accessory muscle use, decreased breath sounds, rales, respiratory distress, rhonchi, wheezes - Cardiovascular Cardiovascular exam: Present: RRR, +S1, +S2. Absent: bradycardia, diastolic murmur, gallop, rubs, systolic murmur, tachycardia - GI/Abdominal GI/Abdominal exam: Present: normal bowel sounds, soft. Absent: distended, hepatomegaly, tenderness - Extremities Exam Extremities exam: Present: normal capillary refill, normal inspection, warm, radial pulses palpable and symmetrical. Absent: calf tenderness, cyanotic, pedal edema, tenderness - Neurological Exam Neurological exam: Present: alert, oriented X3, no focal deficits, pronater drift. Absent: facial droop, speech deficit - Skin Skin exam: Present: dry, intact, normal color, warm. Absent: rash - Patient Status Disposition: Home, Self-Care Condition: Good Functional capacity at discharge: independent ambulation Overall status at discharge: patient is back to baseline - Discharge Instructions Follow Up With: Porfirio Davis MD [Primary Care Provider] - Additional Instructions: Please try to find a PCP in the next week and follow up for a recheck. Return to your normal diet and activities as tolerated. Return to the ER as needed for any other problems or concerns, or if your symptoms return or worsen. [facility] at 11:20. - Diet and Activity Activity: increase activity as tolerated Diet: advance to your usual diet
[2017-12-21 14:58] VITALS: BP 123/79
[2017-12-21 21:30] LABS: Urine Collection Duration RANDOM hr; Urine Collection Volume RANDOM mL
[2017-12-21 23:33] LABS: Alpha 2 Globulin (PEP) 0.86 g/dL (0.48-1.05); Beta Globulin (PEP) 1.17 g/dL (0.48-1.10)
[2017-12-22 10:32] LABS: IFE Reflexed IFE Done; Immunoglobulin A 504 mg/dL (68-408); Immunoglobulin G 1260 mg/dL (768-1632); Immunoglobulin M 39 mg/dL (35-263)
== END 2017-12-21 17:13 | disposition home or self-care (01) ==
LOC: 3BNU
PROVIDERS: ADMIT Family Medicine; ATTEND Family Medicine